=== PATIENT | female | born 1985 | race Caucasian/White ===

== ENCOUNTER 2017-04-06 20:17 | Inpatient (IN) | payer OTHER ==
[~2017-04-06] VITALS: Ht 165.1 cm; Wt 53.1 kg
[2017-04-06] MEDS ORDERED: FOLIC ACID0.4 MG (20:41)
[2017-04-08] MEDS ORDERED: INTEGRA PLUS C1 EACH PO (09:33)
== END 2017-04-08 12:30 | DRG 812 ==
LOC: ER 20:17 → SEC-K 04-07 09:19
PROC: 30233N1 Transfusion of Nonautologous Red Blood Cells into Peripheral Vein, Percutaneous Approach (ICD-10-PCS; principal; 2017-04-07)
DX: D50.0 Iron deficiency anemia secondary to blood loss (chronic) (principal); N92.0 Excessive and frequent menstruation with regular cycle

== ENCOUNTER 2019-10-24 23:59 | Inpatient (IN) | payer OTHER ==
[~2019-10-24] VITALS: Ht 165.1 cm; Wt 63.5 kg
[~2019-10-24 23:59] MED LIST: FOLIC ACID0.4 MG; INTEGRA PLUS C1 EACH PO
== END 2019-11-02 11:02 | disposition home or self-care (01) | DRG 378 ==
LOC: ER 23:59 → SEC-K 10-25 09:14 → SURH 10-25 09:14
PROVIDERS: ADMIT Internal Medicine; ATTEND Internal Medicine
PROC: 30233N1 Transfusion of Nonautologous Red Blood Cells into Peripheral Vein, Percutaneous Approach (ICD-10-PCS; principal; 2019-10-25)
PROC: 0DJD8ZZ Inspection of Lower Intestinal Tract, Via Natural or Artificial Opening Endoscopic (ICD-10-PCS; 2019-10-31)
DX: K62.5 Hemorrhage of anus and rectum (principal); K50.90 Crohn's disease, unspecified, without complications; D68.0 Von Willebrand disease; Z20.828 Contact with and (suspected) exposure to other viral communicable diseases; D50.0 Iron deficiency anemia secondary to blood loss (chronic); D25.1 Intramural leiomyoma of uterus; K64.4 Residual hemorrhoidal skin tags